=== PATIENT | female | born 1955 | race Caucasian/White ===

== ENCOUNTER → 2016-08-08 | Day surgery (SDC) | payer OTHER | END | disposition home or self-care (01) | LOC: EDSTATUS 09:00 → FRADUS-SUR 09:11 | PROVIDERS: ATTEND Internal Medicine | PROC: 0H9U3ZZ Drainage of Left Breast, Percutaneous Approach (ICD-10-PCS; principal; 2016-08-08) | DX: N60.02 Solitary cyst of left breast (principal) | CPT/HCPCS: 76942-TC; 87070; 87186; 87205 ==

== ENCOUNTER 2022-08-20 04:14 | Day surgery (SDC) | payer OTHER ==
[2022-08-08 12:06] VITALS: BMI 33.8
[2022-08-20] MEDS ORDERED: LIDOCAINE HCL 1%, 10 MG/ML (20ML VIAL) ONE (10:21)
[2022-08-20] MEDS ORDERED: DEXAMETHASONE SOD PHOSPHATE 4 MG/1 ML VIAL ONE (10:22)
[2022-08-20] MEDS ORDERED: ONDANSETRON 4 MG/2 ML VIAL ONE (10:22)
[2022-08-20] MEDS ORDERED: LIDOCAINE HCL/PF 2% SDV 5ML VIAL ONE (10:22)
[2022-08-20] MEDS ORDERED: ROCURONIUM BROMIDE 50 MG/5 ML SYRINGE ONE (10:23)
[2022-08-20] MEDS ORDERED: MIDAZOLAM HCL 2 MG/2 ML SINGLE DOSE VIAL ONE (10:23)
[2022-08-20] MEDS ORDERED: PROPOFOL 20 ML ONE (10:23)
[2022-08-20] MEDS ORDERED: BUPIVACAINE HCL/PF 0.25% (2.5MG/ML) 10 ML VIAL ONE (10:38)
[2022-08-20] MEDS ORDERED: HEPARIN NA (PORCINE) 5,000 UNITS/ML 1ML VIAL ONE (10:52)
[2022-08-20] MEDS ORDERED: ceFAZolin SODIUM 1 GM VIAL IVPB ONE (11:05)
[2022-08-20] MEDS ORDERED: HEPARIN NA (PORCINE) 5,000 UNITS/ML 1ML VIAL SQ ONE (11:10)
[2022-08-20] MEDS ORDERED: ceFAZolin SODIUM 1 GM VIAL ONE (11:11)
[2022-08-20] MEDS ORDERED: GLYCOPYRROLATE 0.2 MG/1 ML VIAL ONE (12:00)
[2022-08-20] MEDS ORDERED: NEOSTIGMINE METHYLSULFATE 0.5 MG/1 ML - 10 ML MDV ONE (12:00)
[2022-08-20] MEDS ORDERED: ONDANSETRON 4 MG/2 ML VIAL IVPUSH PRN (12:35)
[2022-08-20] MEDS ORDERED: oxyCODONE HCL 5 MG TABLET PO PRN (12:35)
[2022-08-20] MEDS ORDERED: ACETAMINOPHEN 1000 MG/100 ML BAG IVPB ONE (12:36)
[2022-08-20] MEDS ORDERED: LACTATED RINGERS SOLUTION 1,000 ML IV SCH (12:45)
[2022-08-20] MEDS ORDERED: ALBUTEROL SO4 0.083% IH SOL 2.5 MG/3 ML VIAL.NEB. NEB ONE (12:53)
[2022-08-20] MEDS ORDERED: ALBUTEROL SO4 2.5/IPRATROPIUM 0.5 INH SOL 3 ML VIAL.NEB. NEB ONE (12:55)
[2022-08-20] MEDS ORDERED: ACETAMINOPHEN INJECTION 100 ML IVPB ONE (13:30)
[2022-08-20 13:47] VITALS: RESP 18
[2022-08-20 15:19] VITALS: BP 148/64; PULSE 89; TEMP 97.7
== END 2022-08-20 15:10 | disposition home or self-care (01) ==
LOC: JASU-SURG 04:14
PROVIDERS: ATTEND Surgery
PROC: 07B74ZX Excision of Thorax Lymphatic, Percutaneous Endoscopic Approach, Diagnostic (ICD-10-PCS; principal; 2022-08-20 10:30)
DX: C96.9 Malignant neoplasm of lymphoid, hematopoietic and related tissue, unspecified (principal); Z72.0 Tobacco use; I10 Essential (primary) hypertension; I73.9 Peripheral vascular disease, unspecified
CPT/HCPCS: 71045-TC-FY; 82962; 86850; 86900; 86901; 87070; 87075; 87102; 87116; 87205; 87206; 87210; 88305-TC; 88331-TC; 88341-TC; 88342-TC; 94760; J1644

== ENCOUNTER 2024-09-07 04:20 | Day surgery (SDC) | payer OTHER ==
[2024-09-05 12:32] VITALS: BMI 36.3
[2024-09-07] MEDS ORDERED: HYALURONATE SODIUM 23 MG/1 ML SYRINGE IO ONE (07:45)
[2024-09-07] MEDS ORDERED: EPINEPHrine 1:1000 P/F - 1 MG/ML AMP ONE (07:51)
[2024-09-07] MEDS ORDERED: LIDOCAINE HCL/PF 1% SDV 5ML VIAL ONE (07:51)
[2024-09-07] MEDS ORDERED: POVIDONE-IODINE 5% OPHTHALMIC PREP 30 ML SOLUTION ONE (07:52)
[2024-09-07] MEDS ORDERED: TETRACAINE 0.5% OPHTH SOLN 2 ML BOTTLE ONE (07:52)
[2024-09-07] MEDS ORDERED: ACETAMINOPHEN 325 MG TABLET (FP) PO PRN (08:00)
[2024-09-07] MEDS ORDERED: PHENYLEPHRINE 2.5% OPTHALMIC DROP 2ML BOTTLE ONE (08:54)
[2024-09-07] MEDS ORDERED: TROPICAMIDE 1% OPHTH SOLN 15 ML BOTTLE ONE (08:55)
[2024-09-07] MEDS ORDERED: OFLOXACIN 0.3% OPHTHALMIC SOLUTION 5 ML BOTTLE ONE (08:55)
[2024-09-07] MEDS ORDERED: KETOROLAC TROMETHAMINE 0.5% EYE DROP 1 DROP DROPS ONE (08:55)
[2024-09-07] MEDS ORDERED: CYCLOPENTOLATE HCL 1% OPHTH SOLN 2 ML BOTTLE ONE (08:55)
[2024-09-07] MEDS: CYCLOPENTOLATE HCL 1% OPHTH SOLN 2 ML BOTTLE OP SCH (09:00)
[2024-09-07] MEDS: TROPICAMIDE 1% OPHTH SOLN 15 ML BOTTLE OP SCH (09:00)
[2024-09-07] MEDS: KETOROLAC TROMETHAMINE 0.5% EYE DROP 1 DROP DROPS OP SCH (09:00)
[2024-09-07] MEDS: PHENYLEPHRINE 2.5% OPHTH SOLN 15 ML BOTTLE OP SCH (09:00)
[2024-09-07] MEDS: OFLOXACIN 0.3% OPHTHALMIC SOLUTION 5 ML BOTTLE OP SCH (09:00)
[2024-09-07 09:09] VITALS: RESP 20
[2024-09-07] MEDS: MANNITOL 25% 12.5 GM/50 ML VIAL IVPB ONE (10:35)
[2024-09-07] MEDS ORDERED: ONDANSETRON 4 MG/2 ML VIAL ONE (10:46)
[2024-09-07] MEDS ORDERED: MIDAZOLAM HCL 2 MG/2 ML SINGLE DOSE VIAL ONE (10:46)
[2024-09-07] MEDS: TETRACAINE 0.5% OPHTH SOLN 2 ML BOTTLE OS ONE (10:58)
[2024-09-07] MEDS: POVIDONE-IODINE 5% OPHTHALMIC PREP 30 ML SOLUTION OS ONE (10:59)
[2024-09-07] MEDS: LIDOCAINE HCL 1% PRESERVATIVE FREE - 30ML VIAL IO ONE (11:06)
[2024-09-07] MEDS: TRYPAN BLUE 0.5 ML DISP.SYRIN IO ONE (11:07)
[2024-09-07] MEDS: HYALURONATE SODIUM 23 MG/1 ML SYRINGE IO ONE ×2 (11:08)
[2024-09-07] MEDS: CHONDROITIN SU A/HYALUR SOD 1 KIT IO ONE (11:09)
[2024-09-07] MEDS: EPINEPHrine 1:1000 P/F - 1 MG/ML AMP IO ONE (11:13)
[2024-09-07 13:36] VITALS: BP 115/60; PULSE 74; TEMP 96.8
== END 2024-09-07 12:20 | disposition home or self-care (01) ==
LOC: JASU-SURG 04:20
PROVIDERS: ATTEND Ophthalmology
PROC: 08RK3JZ Replacement of Left Lens with Synthetic Substitute, Percutaneous Approach (ICD-10-PCS; principal; 2024-09-07 10:00)
DX: H25.89 Other age-related cataract (principal)
CPT/HCPCS: 66984; V2632; 82962

== ENCOUNTER 2025-01-07 18:14 | Inpatient (IN) | payer OTHER ==
[2025-01-07] MEDS ORDERED: ONDANSETRON 4 MG/2 ML VIAL ONE (20:16)
[2025-01-07] MEDS ORDERED: VANCOMYCIN 1,000 MG in DEXTROSE 5%-WATER - 250 ML IVPB ONE (20:41)
[2025-01-07] MEDS: ONDANSETRON 4 MG/2 ML VIAL IVPUSH ONE (20:45)
[2025-01-07 20:51] LABS: HEMATOCRIT 26.8 % (34.1-44.9); MCHC 33.6 g/dl (32.2-35.5); MEAN CELL VOLUME 86.2 fl (79.4-94.8); MEAN PLT VOLUME 8.3 fl (9.4-12.3); PLATELET COUNT 285 x10^3/uL (182-369); RDW 16.7 % (12.4-16.4)
[2025-01-07] MEDS ORDERED: VANCOMYCIN 1 GM PREMIX (F) 1 GM/200 ML BAG ONE (20:56)
[2025-01-07] MEDS: VANCOMYCIN 1 GM PREMIX (F) 1 GM/200 ML BAG IVPB ONE (21:09)
[2025-01-07 21:24] LABS: CHLORIDE 108 mmol/L (98-107); SODIUM 139 mmol/L (136-145)
[2025-01-07 21:27] LABS: ALBUMIN 2.7 g/dl (3.4-5.0); BLOOD UREA NITROGEN 42.5 mg/dL (7-18); CALCIUM 8.2 mg/dL (8.5-10.1); CO2 25 mmol/L (21-32); GLUCOSE,RANDOM 80 mg/dL (74-106); MAGNESIUM 1.4 mg/dL (1.8-2.4)
[2025-01-07 21:30] LABS: CREATININE 1.7 mg/dL (0.55-1.3); SGOT/AST 11 U/L (15-37); SGPT/ALT 12 U/L (13-61)
[2025-01-07 21:31] LABS: BILIRUBIN,TOTAL 0.3 mg/dL (0.2-1); TOT PROT 5.8 g/dl (6.4-8.2)
[2025-01-07 21:32] LABS: ANION GAP 6 mmol/L (4-13); POTASSIUM 2.6 mmol/L (3.5-5.1)
[2025-01-07 21:33] LABS: ALK PHOS 74 U/L (45-117)
[2025-01-07] MEDS ORDERED: ACETAMINOPHEN INJECTION 100 ML ONE (21:35)
[2025-01-07] MEDS: ACETAMINOPHEN 1000 MG/100 ML BAG IVPB ONE (21:41)
[2025-01-07] MEDS ORDERED: POTASSIUM CHLORIDE ORAL LIQUID 20 MEQ/15 ML ONE (21:44)
[2025-01-07] MEDS ORDERED: MAGNESIUM SULFATE IN WATER 2 GM/50 ML IVPB IVPB ONE (21:44)
[2025-01-07 21:55] LABS: IRON SERUM 37 ug/dL (50-175); TOTAL IRON BINDING CAPACITY 285 ug/dL (250-450)
[2025-01-07] MEDS: POTASSIUM CHLORIDE ORAL LIQUID 20 MEQ/15 ML PO ONE (22:01)
[2025-01-07] MEDS: MAGNESIUM SULF 50% (8.12 MEQ/2 ML-1 GM VIAL) IVPB ONE (22:01)
[2025-01-07] MEDS: FOLIC ACID INJECTION - 1 MG, THIAMINE HCL 100 MG, MULTIVIT INJECTION ADULT 10 ML in SOD... IVPB ONE ×2 (22:43→23:30)
[2025-01-07] MEDS ORDERED: KCL 10 MEQ IVPB 10 MEQ/100 ML INFUS.BAG IVPB ONE (23:04)
[2025-01-07 23:09] LABS: ERYTHROCYTE SEDIMENTATION RATE 91 mm/hr (0-30)
[2025-01-07] MEDS: KCL 10 MEQ IVPB 10 MEQ/100 ML INFUS.BAG IVPB SCH (23:29)
[2025-01-07] MEDS: morphine SULFATE 4 MG/ML VIAL IVPUSH ONE (23:30)
[2025-01-07] MEDS: SODIUM CHLORIDE 0.9% 500 ML INFUS.BAG IV ONE (23:30)
[2025-01-08] MEDS: KCL 10 MEQ IVPB 10 MEQ/100 ML INFUS.BAG IVPB SCH (03:15)
[2025-01-08] MEDS: SODIUM CHLORIDE 1,000 ML IV SCH (03:20)
[2025-01-08] MEDS: HEPARIN NA (PORCINE) 5,000 UNITS/ML 1ML VIAL SQ SCH (09:48)
[2025-01-08] MEDS: CARVEDILOL 3.125 MG TABLET (FP) PO SCH (09:48)
[2025-01-08] MEDS ORDERED: FOLIC ACID INJECTION - 1 MG, THIAMINE HCL 100 MG, MULTIVIT INJECTION ADULT 10 ML in SOD... IVPB ONE (10:00)
[2025-01-08 10:10] LABS: ABSOLUTE IMMATURE GRANULOCYTES 0.07 x10^3/uL (0.0-0.031); BASOPHILS # 0.04 x10^3/uL (0.01-0.08); EOSINOPHIL % 1.2 % (0.7-5.8); EOSINOPHILS # 0.13 x10^3/uL (0.04-0.36); HEMATOCRIT 25.7 % (34.1-44.9); HEMOGLOBIN 8.4 g/dL (11.2-15.7); MCHC 32.7 g/dl (32.2-35.5); MEAN CELL VOLUME 86.8 fl (79.4-94.8); MEAN PLT VOLUME 8.5 fl (9.4-12.3); MONOCYTE # 1.22 x10^3/uL (0.24-0.86); MONOCYTE % 11.1 % (4.7-12.5); PLATELET COUNT 290 x10^3/uL (182-369); RDW 17.1 % (12.4-16.4)
[2025-01-08 10:29] LABS: POTASSIUM 3.3 mmol/L (3.5-5.1)
[2025-01-08 10:31] LABS: ALBUMIN 2.4 g/dl (3.4-5.0); BLOOD UREA NITROGEN 38.3 mg/dL (7-18); CALCIUM 8.2 mg/dL (8.5-10.1)
[2025-01-08 10:34] LABS: CREATININE 1.4 mg/dL (0.55-1.3)
[2025-01-08 10:36] LABS: BILIRUBIN,TOTAL 0.2 mg/dL (0.2-1); TOT PROT 5.1 g/dl (6.4-8.2)
[2025-01-08 12:27] LABS: PH,URINE 5.5 (5.0-8.0); URINE APPEARANCE CLEAR; URINE BILIRUBIN NEGATIVE (NEGATIVE); URINE COLOR YELLOW; URINE GLUCOSE (UA) NEGATIVE (NEGATIVE); URINE KETONE NEGATIVE (NEGATIVE); URINE LEUK ESTERASE NEGATIVE (NEGATIVE); URINE NITRITE NEGATIVE (NEGATIVE); URINE PROTEIN NEGATIVE (NEGATIVE); URINE UROBILINOGEN 0.2 mg/dL (0.2-1.0)
[2025-01-08] MEDS: SODIUM CHLORIDE 0.9%/KCL 20 MEQ/1,000 ML INFUS.BAG IV SCH (12:46)
[2025-01-08] MEDS: SODIUM HYPOCHLORITE 0.25%- 473 ML BULK BOTTLE TP SCH (14:30)
[2025-01-08] MEDS: ACETAMINOPHEN 325 MG TABLET (FP) PO PRN (14:48)
[2025-01-08] MEDS: metFORMIN HCL 500 MG TABLET (FP) PO SCH (17:22)
[2025-01-08] MEDS: POTASSIUM CHLORIDE ORAL LIQUID 20 MEQ/15 ML PO ONE (20:37)
[2025-01-08] MEDS: MAGNESIUM 1GM/D5W 100ML - 100 ML IVPB IVPB ONE (20:40)
[2025-01-08] MEDS: ROSUVASTATIN CA 20 MG TABLET PO SCH (21:15)
[2025-01-08] MEDS: ONDANSETRON 4 MG/2 ML VIAL IVPUSH ONE (21:20)
[2025-01-09 07:15] LABS: POTASSIUM 3.8 mmol/L (3.5-5.1)
[2025-01-09 07:17] LABS: HEMATOCRIT 25.4 % (34.1-44.9); MCHC 31.5 g/dl (32.2-35.5); MEAN CELL VOLUME 89.8 fl (79.4-94.8); MEAN PLT VOLUME 8.8 fl (9.4-12.3); PLATELET COUNT 266 x10^3/uL (182-369); RDW 17.1 % (12.4-16.4)
[2025-01-09 07:21] LABS: ALBUMIN 2.3 g/dl (3.4-5.0); BLOOD UREA NITROGEN 26.9 mg/dL (7-18); CALCIUM 7.7 mg/dL (8.5-10.1); MAGNESIUM 2.1 mg/dL (1.8-2.4)
[2025-01-09 07:26] LABS: BILIRUBIN,TOTAL 0.3 mg/dL (0.2-1); TOT PROT 4.8 g/dl (6.4-8.2)
[2025-01-09] MEDS ORDERED: POLYETHYLENE GLYCOL (HEALTHYLAX) 3350 17 GM PACKET PO PRN (10:10)
[2025-01-09] MEDS: AMPICILLIN NA/SULBACTAM NA 3 GM in SODIUM CHLORIDE 100 ML IVPB SCH (18:43)
[2025-01-10 11:19] LABS: HEMOGLOBIN 8.7 g/dL (11.2-15.7)
[2025-01-10 11:20] LABS: HEMATOCRIT 28.1 % (34.1-44.9); MEAN CELL VOLUME 89.5 fl (79.4-94.8); MEAN PLT VOLUME 8.9 fl (9.4-12.3); PLATELET COUNT 286 x10^3/uL (182-369)
[2025-01-10 11:45] LABS: CALCIUM 8.4 mg/dL (8.5-10.1); MAGNESIUM 1.9 mg/dL (1.8-2.4)
[2025-01-10 11:47] LABS: BLOOD UREA NITROGEN 19.1 mg/dL (7-18)
[2025-01-10 11:49] LABS: CREATININE 0.8 mg/dL (0.55-1.3)
[2025-01-10 11:51] LABS: PHOSPHOROUS 3.2 mg/dL (2.5-4.9)
[2025-01-10] MEDS ORDERED: ETOMIDATE 20 MG/10 ML VIAL IVPUSH ONE (13:11)
[2025-01-10] MEDS ORDERED: PROPOFOL 20 ML ONE (13:11)
[2025-01-10 13:52] VITALS: BMI 34.3
[2025-01-10] MEDS ORDERED: ACETAMINOPHEN INJECTION 100 ML ONE (14:44)
[2025-01-10] MEDS: ACETAMINOPHEN 1000 MG/100 ML BAG IVPB ONE (14:51)
[2025-01-10] MEDS: metFORMIN HCL 500 MG TABLET (FP) PO SCH (17:39)
[2025-01-10] MEDS: GABAPENTIN 100 MG CAPSULE PO SCH (18:31)
[2025-01-10] MEDS: LACTATED RINGERS SOLUTION 1,000 ML IV SCH (18:32)
[2025-01-10] MEDS: ACETAMINOPHEN 1000 MG/100 ML BAG IVPB PRN (20:53)
[2025-01-10] MEDS: ROSUVASTATIN CA 20 MG TABLET PO SCH (21:13)
[2025-01-10] MEDS: HEPARIN NA (PORCINE) 5,000 UNITS/ML 1ML VIAL SQ SCH (21:13)
[2025-01-10] MEDS: CARVEDILOL 3.125 MG TABLET (FP) PO SCH (21:15)
[2025-01-11] MEDS ORDERED: DOCUSATE SODIUM 100 MG CAPSULE (FP) PO PRN (11:50)
[2025-01-11] MEDS: oxyCODONE HCL 5 MG TABLET PO PRN (12:01)
[2025-01-11] MEDS: GABAPENTIN 300 MG CAPSULE PO SCH (14:40)
[2025-01-11] MEDS: ACETAMINOPHEN 325 MG TABLET (FP) PO PRN (16:55)
[2025-01-14 07:55] LABS: ABSOLUTE IMMATURE GRANULOCYTES 0.07 x10^3/uL (0.0-0.031); BASOPHILS # 0.04 x10^3/uL (0.01-0.08); EOSINOPHIL % 2.5 % (0.7-5.8); EOSINOPHILS # 0.19 x10^3/uL (0.04-0.36); HEMATOCRIT 24.9 % (34.1-44.9); HEMOGLOBIN 7.9 g/dL (11.2-15.7); MCHC 31.7 g/dl (32.2-35.5); MEAN CELL VOLUME 90.2 fl (79.4-94.8); MEAN PLT VOLUME 9.1 fl (9.4-12.3); MONOCYTE # 0.87 x10^3/uL (0.24-0.86); MONOCYTE % 11.3 % (4.7-12.5); PLATELET COUNT 248 x10^3/uL (182-369); RDW 16.8 % (12.4-16.4)
[2025-01-14 07:58] LABS: POTASSIUM 3.4 mmol/L (3.5-5.1)
[2025-01-14 08:04] LABS: ALBUMIN 1.8 g/dl (3.4-5.0)
[2025-01-14 08:05] LABS: CREATININE 1.4 mg/dL (0.55-1.3)
[2025-01-14 08:07] LABS: BILIRUBIN,TOTAL 0.3 mg/dL (0.2-1); TOT PROT 4.4 g/dl (6.4-8.2)
[2025-01-14] MEDS: POTASSIUM CHLORIDE ORAL LIQUID 20 MEQ/15 ML PO ONE (13:56)
[2025-01-14] MEDS: ACETAMINOPHEN 1000 MG/100 ML BAG IVPB PRN (16:24)
[2025-01-14] MEDS: oxyCODONE HCL 5 MG TABLET PO PRN (18:13)
[2025-01-15 06:58] LABS: POTASSIUM 4.1 mmol/L (3.5-5.1)
[2025-01-15 07:00] LABS: BLOOD UREA NITROGEN 21.9 mg/dL (7-18)
[2025-01-15 07:01] LABS: ALBUMIN 1.8 g/dl (3.4-5.0)
[2025-01-15 07:04] LABS: CREATININE 1.9 mg/dL (0.55-1.3)
[2025-01-15 07:05] LABS: BILIRUBIN,TOTAL 0.2 mg/dL (0.2-1); TOT PROT 4.6 g/dl (6.4-8.2)
[2025-01-15] MEDS: LACTOBACILLUS ACIDOPHILUS 1 TABLET PO SCH (10:10)
[2025-01-15 11:09] LABS: ABSOLUTE IMMATURE GRANULOCYTES 0.07 x10^3/uL (0.0-0.031); BASOPHILS # 0.04 x10^3/uL (0.01-0.08); EOSINOPHIL % 4.1 % (0.7-5.8); EOSINOPHILS # 0.25 x10^3/uL (0.04-0.36); HEMATOCRIT 25.8 % (34.1-44.9); MEAN CELL VOLUME 91.8 fl (79.4-94.8); MONOCYTE # 0.68 x10^3/uL (0.24-0.86); PLATELET COUNT 258 x10^3/uL (182-369); RDW 16.7 % (12.4-16.4)
[2025-01-15 11:52] LABS: POTASSIUM 4.1 mmol/L (3.5-5.1)
[2025-01-15 11:55] LABS: ALBUMIN 1.9 g/dl (3.4-5.0); BLOOD UREA NITROGEN 21.1 mg/dL (7-18)
[2025-01-15 12:00] LABS: BILIRUBIN,TOTAL 0.2 mg/dL (0.2-1); TOT PROT 4.8 g/dl (6.4-8.2)
[2025-01-16 11:25] LABS: ABSOLUTE IMMATURE GRANULOCYTES 0.09 x10^3/uL (0.0-0.031); BASOPHILS # 0.03 x10^3/uL (0.01-0.08); EOSINOPHIL % 3.5 % (0.7-5.8); EOSINOPHILS # 0.21 x10^3/uL (0.04-0.36); HEMATOCRIT 23.6 % (34.1-44.9); HEMOGLOBIN 7.4 g/dL (11.2-15.7); MCHC 31.4 g/dl (32.2-35.5); MEAN CELL VOLUME 92.5 fl (79.4-94.8); MEAN PLT VOLUME 9.2 fl (9.4-12.3); MONOCYTE % 13.5 % (4.7-12.5); PLATELET COUNT 248 x10^3/uL (182-369); RDW 16.5 % (12.4-16.4)
[2025-01-16 11:34] LABS: POTASSIUM 3.7 mmol/L (3.5-5.1)
[2025-01-16 11:42] LABS: CALCIUM 8.1 mg/dL (8.5-10.1)
[2025-01-16 11:44] LABS: ALBUMIN 1.8 g/dl (3.4-5.0); BLOOD UREA NITROGEN 19.8 mg/dL (7-18)
[2025-01-16 11:47] LABS: CREATININE 1.9 mg/dL (0.55-1.3)
[2025-01-16 11:49] LABS: BILIRUBIN,TOTAL 0.2 mg/dL (0.2-1); TOT PROT 4.6 g/dl (6.4-8.2)
[2025-01-16] MEDS: SODIUM CHLORIDE 0.45% 1,000 ML IV SCH (14:08)
[2025-01-16] MEDS: ONDANSETRON 4 MG/2 ML VIAL IVPUSH PRN (16:25)
[2025-01-17 10:05] LABS: POTASSIUM 3.5 mmol/L (3.5-5.1)
[2025-01-17 10:08] LABS: ALBUMIN 1.9 g/dl (3.4-5.0); BLOOD UREA NITROGEN 15.5 mg/dL (7-18); CALCIUM 8.5 mg/dL (8.5-10.1)
[2025-01-17 10:12] LABS: CREATININE 1.7 mg/dL (0.55-1.3)
[2025-01-17 10:13] LABS: BILIRUBIN,TOTAL 0.2 mg/dL (0.2-1); TOT PROT 4.8 g/dl (6.4-8.2)
[2025-01-17] MEDS: PORTA CATH FLUSH 10 ML IVPUSH PRN (17:29)
[2025-01-17] MEDS: oxyCODONE HCL 5 MG TABLET PO PRN (20:59)
[2025-01-18 11:16] LABS: ABSOLUTE IMMATURE GRANULOCYTES 0.06 x10^3/uL (0.0-0.031); BASOPHILS # 0.04 x10^3/uL (0.01-0.08); EOSINOPHIL % 3.2 % (0.7-5.8); EOSINOPHILS # 0.19 x10^3/uL (0.04-0.36); HEMATOCRIT 22.8 % (34.1-44.9); MCHC 30.7 g/dl (32.2-35.5); MEAN CELL VOLUME 91.6 fl (79.4-94.8); MEAN PLT VOLUME 9.2 fl (9.4-12.3); MONOCYTE # 0.63 x10^3/uL (0.24-0.86); MONOCYTE % 10.5 % (4.7-12.5); PLATELET COUNT 254 x10^3/uL (182-369)
[2025-01-18 11:40] LABS: POTASSIUM 3.1 mmol/L (3.5-5.1)
[2025-01-18 11:43] LABS: CALCIUM 8.3 mg/dL (8.5-10.1)
[2025-01-18 11:44] LABS: ALBUMIN 1.8 g/dl (3.4-5.0)
[2025-01-18 11:47] LABS: CREATININE 1.3 mg/dL (0.55-1.3)
[2025-01-18 11:49] LABS: BILIRUBIN,TOTAL 0.2 mg/dL (0.2-1); TOT PROT 4.4 g/dl (6.4-8.2)
[2025-01-18] MEDS: KCL 10 MEQ IVPB 10 MEQ/100 ML INFUS.BAG IVPB SCH (12:09)
[2025-01-18] MEDS: POTASSIUM CHLORIDE ORAL LIQUID 20 MEQ/15 ML PO ONE (13:30)
[2025-01-18] MEDS ORDERED: DEXMEDETOMIDINE HCL 200 MCG/2 ML IVPB ONE (16:08)
[2025-01-18] MEDS ORDERED: MIDAZOLAM HCL 2 MG/2 ML SINGLE DOSE VIAL ONE (16:22)
[2025-01-18] MEDS: ceFAZolin SODIUM 1 GM VIAL IVPB ONE ×2 (16:32)
[2025-01-18] MEDS ORDERED: ceFAZolin SODIUM 1 GM VIAL ONE (16:33)
[2025-01-18] MEDS: LIDOCAINE HCL 1%, 10 MG/ML (50 mL VIAL) INF ONE ×3 (16:39)
[2025-01-18] MEDS ORDERED: ONDANSETRON 4 MG/2 ML VIAL IVPUSH PRN ×2 (18:04→18:12)
[2025-01-18] MEDS ORDERED: POLYETHYLENE GLYCOL (HEALTHYLAX) 3350 17 GM PACKET PO PRN (18:12)
[2025-01-18] MEDS ORDERED: DOCUSATE SODIUM 100 MG CAPSULE (FP) PO PRN (18:12)
[2025-01-18] MEDS: PORTA CATH FLUSH 10 ML IVPUSH PRN (18:15)
[2025-01-18] MEDS: ASPIRIN 81 MG CHEWABLE TABLETS PO SCH (18:51)
[2025-01-18] MEDS: ENOXAPARIN NA (PORCINE) 60 MG/0.6 ML DISP.SYRIN SQ SCH (18:51)
[2025-01-18] MEDS: CLOPIDOGREL BISULFATE 75 MG TABLET (FP) PO SCH (18:51)
[2025-01-18] MEDS: AMINO ACIDS/PROTEIN HYDROLYS 30 ML LIQUID.PKT PO SCH (19:17)
[2025-01-18 19:45] VITALS: RESP 18
[2025-01-18] MEDS: GABAPENTIN 300 MG CAPSULE PO SCH (21:11)
[2025-01-18] MEDS: oxyCODONE HCL 5 MG TABLET PO PRN (21:11)
[2025-01-18] MEDS: CARVEDILOL 3.125 MG TABLET (FP) PO SCH (21:12)
[2025-01-18] MEDS: ROSUVASTATIN CA 20 MG TABLET PO SCH (21:12)
[2025-01-19 08:34] LABS: HEMOGLOBIN 7.8 g/dL (11.2-15.7); MEAN PLT VOLUME 9.5 fl (9.4-12.3)
[2025-01-19 08:36] LABS: HEMATOCRIT 24.5 % (34.1-44.9); MCHC 31.8 g/dl (32.2-35.5); MEAN CELL VOLUME 89.4 fl (79.4-94.8); PLATELET COUNT 284 x10^3/uL (182-369); RDW 16.7 % (12.4-16.4)
[2025-01-19 08:47] LABS: POTASSIUM 3.2 mmol/L (3.5-5.1)
[2025-01-19 08:53] LABS: CALCIUM 8.1 mg/dL (8.5-10.1)
[2025-01-19 08:54] LABS: ALBUMIN 1.9 g/dl (3.4-5.0)
[2025-01-19 08:56] LABS: CREATININE 1.3 mg/dL (0.55-1.3)
[2025-01-19 08:58] LABS: BILIRUBIN,TOTAL 0.3 mg/dL (0.2-1); TOT PROT 4.7 g/dl (6.4-8.2)
[2025-01-19] MEDS: LACTATED RINGERS SOLUTION 1,000 ML IV SCH (09:42)
[2025-01-19] MEDS: LACTOBACILLUS ACIDOPHILUS 1 TABLET PO SCH (10:49)
[2025-01-19] MEDS: SODIUM HYPOCHLORITE 0.25%- 473 ML BULK BOTTLE TP SCH (10:50)
[2025-01-19] MEDS: AMINO ACIDS/PROTEIN HYDROLYS 30 ML LIQUID.PKT PO SCH (10:50)
[2025-01-19] MEDS: POTASSIUM CHLORIDE ORAL LIQUID 20 MEQ/15 ML PO ONE (10:54)
[2025-01-19] MEDS: ACETAMINOPHEN 325 MG TABLET (FP) PO PRN (14:23)
[2025-01-20 09:38] LABS: HEMATOCRIT 29.9 % (34.1-44.9); HEMOGLOBIN 9.3 g/dL (11.2-15.7); MCHC 31.1 g/dl (32.2-35.5); MEAN CELL VOLUME 90.6 fl (79.4-94.8); MEAN PLT VOLUME 9.3 fl (9.4-12.3); PLATELET COUNT 338 x10^3/uL (182-369); RDW 16.8 % (12.4-16.4)
[2025-01-20 10:57] LABS: BLOOD UREA NITROGEN 11.5 mg/dL (7-18); CALCIUM 7.9 mg/dL (8.5-10.1); POTASSIUM 3.5 mmol/L (3.5-5.1)
[2025-01-20 11:18] LABS: CREATININE 1.3 mg/dL (0.55-1.3)
[2025-01-20 14:11] VITALS: BP 131/43; PULSE 68; TEMP 98.1
[2025-01-20] MEDS: POTASSIUM CHLORIDE ORAL LIQUID 20 MEQ/15 ML PO ONE (16:36)
[2025-01-20] MEDS: TORSEMIDE 20 MG TABLET (FP) PO SCH (16:36)
== END 2025-01-20 17:26 | DRG 271 ==
LOC: JER 18:14 → JERBED 21:33 → J4W 01-08 00:29 → OBSVTOIN 01-08 10:56 → J7W 01-10 15:30
PROVIDERS: ADMIT Internal Medicine; ATTEND Internal Medicine
PROC: 0JBM0ZZ Excision of Left Upper Leg Subcutaneous Tissue and Fascia, Open Approach (ICD-10-PCS; principal; 2025-01-10 13:00)
PROC: 04CL3ZZ Extirpation of Matter from Left Femoral Artery, Percutaneous Approach (ICD-10-PCS; 2025-01-18)
PROC: 047L3D1 Dilation of Left Femoral Artery with Intraluminal Device, using Drug-Coated Balloon, Percutaneous Approach (ICD-10-PCS; 2025-01-18)
PROC: 30233N1 Transfusion of Nonautologous Red Blood Cells into Peripheral Vein, Percutaneous Approach (ICD-10-PCS; 2025-01-18)
DX: E11.51 Type 2 diabetes mellitus with diabetic peripheral angiopathy without gangrene (principal); C34.90 Malignant neoplasm of unspecified part of unspecified bronchus or lung; L97.528 Non-pressure chronic ulcer of other part of left foot with other specified severity; N17.9 Acute kidney failure, unspecified; I25.10 Atherosclerotic heart disease of native coronary artery without angina pectoris; I10 Essential (primary) hypertension; I83.028 Varicose veins of left lower extremity with ulcer other part of lower leg; E78.5 Hyperlipidemia, unspecified; I77.1 Stricture of artery; E83.42 Hypomagnesemia; E66.9 Obesity, unspecified; E11.621 Type 2 diabetes mellitus with foot ulcer; R11.2 Nausea with vomiting, unspecified; K59.00 Constipation, unspecified; E87.6 Hypokalemia; F17.210 Nicotine dependence, cigarettes, uncomplicated; Z95.5 Presence of coronary angioplasty implant and graft; Z88.0 Allergy status to penicillin; Z68.34 Body mass index [BMI] 34.0-34.9, adult
CPT/HCPCS: 36415; 36430; 71045-TC-FY; 76000-TC-FY; 76775-TC; 76856-TC; 80048; 80053; 81003; 82962; 83540; 83550; 83690; 83735; 84100; 84484; 85025; 85027; 85651; 86140; 86850; 86900; 86901; 86922; 87070; 87086; 87205; 88304-TC; 93005; 93010; 93922; 93926-TC; 94760; 97116-GP; 97162-GP; 99285-25; C1760; C1769; C1876; C1894; G0378; P9038; P9058